=== PATIENT | male | born 1960 | race Two or more races ===

== ENCOUNTER 2017-04-18 05:06 | Inpatient (IN) | payer OTHER ==
[~2017-04-18] VITALS: Ht 180.3 cm; Wt 86.2 kg
[2017-04-18] MEDS ORDERED: oxyCODONE HCL SR 10MG TAB.SR.12H PO ONE (07:29)
[2017-04-18] MEDS ORDERED: ACETAMINOPHEN 325 MG TABLET ONE (07:29)
[2017-04-18] MEDS ORDERED: CELECOXIB 100 MG CAPSULE ONE (07:29)
[2017-04-18] MEDS ORDERED: CEFAZOLIN SODIUM/DEXTROSE,ISO 100 ML IV ONE (07:35)
[2017-04-18] MEDS ORDERED: FENTANYL PF 100MCG/2ML AMPUL ONE (08:04)
[2017-04-18] MEDS ORDERED: ROCURONIUM BROMIDE 50 MG/5 ML ONE (08:04)
[2017-04-18] MEDS ORDERED: ANESTHESIA TRAY IN PYXIS 1 EA TRAY MC ONE (08:11)
[2017-04-18] MEDS ORDERED: KETOROLAC TROMETHAMINE INJ 30 MG/ML VIAL ONE (08:43)
[2017-04-18] MEDS ORDERED: BUPIVACAINE 0.5 % PF 150 MG/30 ML VIAL ONE (08:43)
[2017-04-18] MEDS ORDERED: BACITRACIN 50000 UNITS/VIAL ONE (08:43)
[2017-04-18] MEDS ORDERED: TRANEXAMIC ACID 3,000 MG in SODIUM CHLORIDE IRRIG SOLUTION 70 ML IR ONE (09:30)
[2017-04-18 10:50] VITALS: BP 99/64
[2017-04-18 11:00] VITALS: BP 99/64
[2017-04-18] MEDS ORDERED: ACETAMINOPHEN 325 MG TABLET PO PRN (14:00)
[2017-04-18] MEDS ORDERED: SENNOSIDES 8.6 MG TABLET PO PRN (14:00)
[2017-04-18] MEDS ORDERED: BISACODYL SUPP (10 MG) 10 MG/SUPP.RECT SUPP.RECT RC PRN (14:00)
[2017-04-18] MEDS ORDERED: diphenhydrAMINE HCL 25 MG CAPSULE PO PRN (14:00)
[2017-04-18] MEDS ORDERED: ONDANSETRON HCL/PF 4 MG/2 ML VIAL IVP PRN (14:00)
[2017-04-18] MEDS ORDERED: oxyCODONE IR immediate release 5 MG CAPSULE PO PRN (14:00)
[2017-04-18] MEDS ORDERED: ZOLPIDEM TARTRATE 5 MG TABLET PO PRN (14:00)
[2017-04-18] MEDS ORDERED: MAG HYDROX/AL HYDROX/SIMETH 30 ML UDC PO PRN (14:00)
[2017-04-18] MEDS: IV D5/0.45 NACL 1,000 ML IV PRN (14:13)
[2017-04-18 16:00] VITALS: BP 131/80
[2017-04-18] MEDS: ANCEF 1 GM/50 ML D5W IV SCH ×2 (17:02)
[2017-04-18] MEDS: DOCUSATE SODIUM 100 MG CAPSULE PO SCH (17:02)
[2017-04-18 20:00] VITALS: BP 129/79
[2017-04-18] MEDS: TAMSULOSIN 0.4 MG CAP.SR.24H PO SCH (22:00)
[2017-04-18] MEDS ORDERED: MAGNESIUM HYDROXIDE 30 ML UDC PO PRN (23:30)
[2017-04-19] MEDS: ANCEF 1 GM/50 ML D5W IV SCH ×2 (00:39)
[2017-04-19] MEDS: IV D5/0.45 NACL 1,000 ML IV PRN (00:42)
[2017-04-19] MEDS: KETOROLAC TROMETHAMINE INJ 30 MG/ML VIAL IV PRN ×2 (04:28→15:41)
[2017-04-19] MEDS: PANTOPRAZOLE 40 MG TABLET.DR PO SCH (06:34)
[2017-04-19 08:00] VITALS: BP 147/86
[2017-04-19] MEDS: ASPIRIN 325 MG TABLET PO SCH ×2 (08:12→16:39)
[2017-04-19] MEDS: DOCUSATE SODIUM 100 MG CAPSULE PO SCH ×2 (08:12→16:39)
[2017-04-19] MEDS: oxyCODONE IR immediate release 5 MG CAPSULE PO PRN ×5 (13:14→17:50)
[2017-04-19 16:00] VITALS: BP 139/86
[2017-04-19 20:20] VITALS: BP 136/81
[2017-04-19] MEDS: TAMSULOSIN 0.4 MG CAP.SR.24H PO SCH (22:17)
[2017-04-20] MEDS: oxyCODONE IR immediate release 5 MG CAPSULE PO PRN (01:46)
[2017-04-20] MEDS: KETOROLAC TROMETHAMINE INJ 30 MG/ML VIAL IV PRN (05:04)
[2017-04-20 08:00] VITALS: BP 134/87
[2017-04-20] MEDS: ASPIRIN 325 MG TABLET PO SCH (08:29)
[2017-04-20] MEDS: DOCUSATE SODIUM 100 MG CAPSULE PO SCH (08:29)
[2017-04-20] MEDS: PANTOPRAZOLE 40 MG TABLET.DR PO SCH (08:29)
== END 2017-04-20 17:15 | disposition home or self-care (01) | DRG 483 ==
LOC: DS 05:06 → MED 13:24
PROVIDERS: ADMIT Specialist; ATTEND Internal Medicine
PROC: 0RRJ0J6 Replacement of Right Shoulder Joint with Synthetic Substitute, Humeral Surface, Open Approach (ICD-10-PCS; principal; 2017-04-18 08:40)
PROC: 0LS30ZZ Reposition Right Upper Arm Tendon, Open Approach (ICD-10-PCS; principal; 2017-04-18 08:40)
PROC: 0LQ14ZZ Repair Right Shoulder Tendon, Percutaneous Endoscopic Approach (ICD-10-PCS; principal; 2017-04-18 08:40)
DX: M19.011 Primary osteoarthritis, right shoulder (principal); F10.20 Alcohol dependence, uncomplicated; Y90.9 Presence of alcohol in blood, level not specified; Y99.0 Civilian activity done for income or pay; X58.XXXA Exposure to other specified factors, initial encounter
CPT/HCPCS: 36415; 86850-TC; 86921-TC; 87081-TC; A4217; A4565; A6209; A6402; C1713; J0690; J1100; J1885; J2405; J2704; J2710; J3010; J3490; J7060